=== PATIENT | female | born 2000 ===

== ENCOUNTER 2024-08-14 14:26 | Emergency (ER) | payer OTHER ==
[~2024-08-14] VITALS: Ht 144.8 cm; Wt 62.7 kg
[2024-08-14 15:30] LABS: Source, Urine Clean Catch
[2024-08-14 15:37] LABS: Appearance, Urine Clear (Clear); Bilirubin, Urine Neg (Neg); Blood, Urine 3+ (Neg); Glucose Qualitative, Urine Neg (Neg); Ketones, Urine Neg (Neg); Leukocyte Esterase, Urine Neg (Neg); Nitrite, Urine Neg (Neg); Protein, Urine Neg (Neg); Urobilinogen, Urine NORM (Normal)
[2024-08-14 16:43] LABS: Color, Urine Pale Yellow (P-Yellow)
[2024-08-14 16:44] LABS: Bacteria Few /hpf; Red Blood Cells, Urine 0-2 /hpf (0-2); Squamous Epithelial Cells Rare /hpf (Few); White Blood Cells, Urine 0-2 /hpf (0-5)
[2024-08-14 17:22] LABS: Bacterial Vaginosis PCR Negative (NEGATIVE); Candida Group, PCR NOT DETECTED (NOT DETECT)
[2024-08-14 17:36] LABS: Candida glabrata-krusei, PCR DETECTED (NOT DETECT)
[2024-08-14] MEDS ORDERED: BORIC ACID VAG (17:49)
== END 2024-08-14 18:01 | disposition home or self-care (01) ==
LOC: ER 14:26
PROVIDERS: Student in an Organized Health Care Education/Training Program
DX: B37.31 Acute candidiasis of vulva and vagina (principal)
CPT/HCPCS: 81001; 81025; 81515; 99283